=== PATIENT | female | born 1990 | race Caucasian/White ===

== ENCOUNTER 2022-10-29 11:25 | Observation (INO) | payer MEDICAID ==
[~2022-10-29] VITALS: Ht 165.1 cm; Wt 90.7 kg
[2022-10-29] MEDS ORDERED: LACTATED RINGERS 1,000 ML IV SCH (12:15)
[2022-10-29 12:37] LABS: CLARITY URINE CLEAR (CLEAR); COLOR URINE YELLOW (YELLOW); KETONES URINE TRACE (NEGATIVE); LEUKOCYTE ESTERASE URINE TRACE (NEGATIVE); NITRITE URINE NEGATIVE (NEGATIVE); OCCULT BLOOD URINE NEGATIVE (NEGATIVE); PROTEIN URINE TRACE (NEGATIVE); SPECIFIC GRAVITY URINE 1.031 (1.005-1.030)
[2022-10-29] MEDS ORDERED: CEFAZOLIN 2,000 MG in DEXT 5% WATER 100 ML IV NR (14:00)
[2022-11-02] MEDS ORDERED: IBUP-2030 PO (07:22)
== END 2022-10-29 15:30 | disposition home or self-care (01) ==
LOC: 8 EST LDRP 11:25
PROVIDERS: ADMIT Obstetrics & Gynecology; ATTEND Obstetrics & Gynecology
DX: O46.93 Antepartum hemorrhage, unspecified, third trimester (principal); O62.9 Abnormality of forces of labor, unspecified; Z3A.39 39 weeks gestation of pregnancy
CPT/HCPCS: 59025; 76805; 76818; 81003; 96361; 96365; G0378; J0690; J7060; 96360; 99281; G0379